=== PATIENT | male | born 1980 | race Caucasian/White ===

== ENCOUNTER 2017-01-18 13:00 | Observation (INO) | payer MEDICAID, OTHER ==
--- NOTE | 2017-01-18 13:45 | EDPHY ---
HPI/HX/ROS/PE/MDM - Data Points Imaging: Discussed imaging studies w/ call worker Radiologist, I viewed and interpreted images myself Narrative: CHIEF COMPLAINT: Right-sided abdominal pain HPI: The patient is a 36 y/o male complaining of right-sided upper abdominal pain. He has had several episodes of similar symptoms for the past several months. However, today's symptoms are more painful than usual. The pain is exacerbated when he eats. He went to an urgent care but the pain improved by the time he arrived. He ate some food after he went to the urgent care and the pain became worse. The pain has also radiated into his right upper back. Denies familial history of gallbladder illness, urinary or bowel complaints, weakness, shortness of breath or other pertinent symptoms. REVIEW OF SYSTEMS: Aside from elements discussed in the HPI, a comprehensive 10-point review of systems was reviewed and is negative. PMH: Appendectomy, depression, anxiety SOCIAL HISTORY: Lives in [place], works as a teacher, nonsmoker PHYSICAL EXAM: General:Patient is alert, in no acute distress. ENT:Eyes are normal to inspection. ENT inspection normal. Neck: Normal inspection. Full range of motion. Respiratory:No respiratory distress. Breath sounds normal bilaterally. Cardiovascular: Regular rate and rhythm. Strong peripheral pulses. Normal cap refill. Abdomen: Mild epigastric tenderness to palpation. There are no peritoneal signs. There are normal bowel sounds. Back: Normal to inspection. No tenderness to palpation. Skin: Normal color. No rash. Warm and dry. Extremities: Normal appearance. Full range of motion. Neuro: Oriented x3. Normal motor function. Normal sensory function. Portions of this note were transcribed by an ED scribe. I personally performed the history, physical exam, and medical decision making; and confirm the accuracy of the information in the transcribed note. (Robert Alcantara) ED Course: 1443: Reassessed patient and discussed laboratory findings. Patient signed out to Dr. Garcia pending US results and re-examination. ( Robert Alcantara) MDM: I assumed care of the patient at 3pm. The patient's ultrasound demonstrates cholelithiasis without obvious cholecystitis. I reviewed the patient's ultrasound images which demonstrates a large stone down in the neck of the gallbladder. Dated the patient he still continues to complain of ongoing pain is noted to have test in the right upper quadrant on exam. The patient received additional IV dose of pain medications. Consultation was made with Dr. Ansari from General surgery at 4:00 p.m.. The patient will require admission to the hospital for surgical treatment of his symptomatic cholelithiasis and possible early cholecystitis. 1 g of IV Invanz has been ordered. (Sachin Garcia) - Data Points Imaging Results: Imaging Impressions Abdomen Ultrasound 01/18/17 14:16 Impression: Cholelithiasis without evidence for cholecystitis. Results called to Prachi Dahl PA-C on 18 January 2017 at 1538 hours. Laboratory Results: Laboratory Results 01/18/17 13:55 01/18/17 13:55 01/18/17 01/18/17 01/18/17 13:55 13:55 13:42 WBC 5.68 10^3/uL 10^3/uL (3.80-9.50) RBC 4.91 10^6/uL 10^6/uL (4.40-6.38) Hgb 15.4 g/dL g/dL (13.7-17.5) Hct 42.9 % % (40.0-51.0) MCV 87.4 fL fL (81.5-99.8) MCH 31.4 pg pg (27.9-34.1) MCHC 35.9 g/dL g/dL (32.4-36.7) RDW 12.4 % % (11.5-15.2) Plt Count 195 10^3/uL 10^3/uL (150-400) MPV 9.8 fL fL (8.7-11.7) Neut % (Auto) 78.7 % H % (39.3-74.2) Lymph % (Auto) 13.4 % L % (15.0-45.0) [place] % (Auto) 6.7 % % (4.5-13.0) Eos % (Auto) 0.5 % L % (0.6-7.6) Baso % (Auto) 0.5 % % (0.3-1.7) Nucleat RBC Rel Count 0.0 % % (0.0-0.2) Absolute Neuts (auto) 4.47 10^3/uL 10^3/uL (1.70-6.50) Absolute Lymphs (auto) 0.76 10^3/uL L 10^3/uL (1.00-3.00) Absolute Monos (auto) 0.38 10^3/uL 10^3/uL (0.30-0.80) Absolute Eos (auto) 0.03 10^3/uL 10^3/uL (0.03-0.40) Absolute Basos (auto) 0.03 10^3/uL 10^3/uL (0.02-0.10) Absolute Nucleated RBC 0.00 10^3/uL 10^3/uL (0-0.01) Immature Gran % 0.2 % % (0.0-1.1) Immature Gran # 0.01 10^3/uL 10^3/uL (0.00-0.10) Sodium 144 mEq/L mEq/L (134-144) Potassium 4.1 mEq/L mEq/L (3.5-5.2) Chloride 104 mEq/L mEq/L (97-110) Carbon Dioxide 25 mEq/l mEq/l (22-31) Anion Gap 15 mEq/L mEq/L (8-16) BUN 17 mg/dL mg/dL (7-23) Creatinine 1.0 mg/dL mg/dL (0.7-1.3) Estimated GFR > 60 Glucose 80 mg/dL mg/dL (70-100) Calcium 9.7 mg/dL mg/dL (8.5-10.4) Total Bilirubin 0.5 mg/dL mg/dL (0.1-1.4) Conjugated Bilirubin 0.3 mg/dL mg/dL (0.0-0.5) Unconjugated Bilirubin 0.2 mg/dL mg/dL (0.0-1.1) AST 13 IU/L L IU/L (17-59) ALT 28 IU/L IU/L (21-72) Alkaline Phosphatase 51 IU/L IU/L (38-126) Troponin I < 0.012 ng/mL ng/mL (0.000-0.034) Total Protein 7.6 g/dL g/dL (6.3-8.2) Albumin 4.7 g/dL g/dL (3.5-5.0) Lipase 94 IU/L IU/L (23-300) General Time Seen by Provider: 01/18/17 13:36 Initial Vital Signs: Initial Vital Signs Temperature (C) 37.1 C 01/18/17 13:08 Heart Rate 86 01/18/17 13:08 Respiratory Rate 18 01/18/17 13:08 Blood Pressure 122/93 H 01/18/17 13:08 O2 Sat (%) 93 01/18/17 13:08 O2 Delivery Mode Room Air Allergies/Adverse Reactions: No Known Allergies Allergy (Verified 01/18/17 13:07) Home Medications: Medication Instructions Recorded Sertraline HCl [Zoloft 50mg (*)] 50 mg PO DAILY 01/18/17 buPROPion [Wellbutrin 75mg (*)] 75 mg PO TID 01/18/17 oxyCODONE/APAP 5/325 [Percocet 1 - 2 tab PO Q4 PRN #20 tab 01/19/17 5/325 (*)] Departure - Departure Disposition: [facility] Inpatient Acute Clinical Impression: Abdominal pain, Acute cholecystitis Condition: Good Report Scribed for: Robert Alcantara Report Scribed by: Charissa Marquez Date of Report: 01/18/17 Time of Report: 13:44
[2017-01-18 14:05] LABS: % IMMATURE GRANULYOCYTES 0.2 % (0.0-1.1); ABSOLUTE IMMATURE GRANULOCYTES 0.01 10^3/uL (0.00-0.10); ADD DIFF? NO; ADD MORPH? NO; ADD SCAN? NO; ATYPICAL LYMPHOCYTE FLAG 0 (0-99); FRAGMENT RBC FLAG 0 (0-99); HEMATOCRIT 42.9 % (40.0-51.0); HEMOGLOBIN 15.4 g/dL (13.7-17.5); LEFT SHIFT FLG 0 (0-99); LIPEMIA HEMOLYSIS FLAG 90 (0-99); MEAN CELL HEMOGLOBIN 31.4 pg (27.9-34.1); MEAN CELL HEMOGLOBIN CONCENTR. 35.9 g/dL (32.4-36.7); MEAN CELL VOLUME 87.4 fL (81.5-99.8); MEAN PLATELET VOLUME 9.8 fL (8.7-11.7); PLATELET CLUMPS FLAG 0 (0-99); PLATELET COUNT 195 10^3/uL (150-400); RED BLOOD CELL COUNT 4.91 10^6/uL (4.40-6.38); RED CELL DISTRIBUTION WIDTH 12.4 % (11.5-15.2)
[2017-01-18 14:17] LABS: ALANINE AMINOTRANSFERASE 28 IU/L (21-72); ALBUMIN 4.7 g/dL (3.5-5.0); ALKALINE PHOSPHATASE 51 IU/L (38-126); ANION GAP 15 mEq/L (8-16); ASPARTATE AMINOTRANSFERASE 13 IU/L (17-59); BILIRUBIN,TOTAL 0.5 mg/dL (0.1-1.4); BILIRUBIN-CONJUGATED 0.3 mg/dL (0.0-0.5); BILIRUBIN-UNCONJUGATED 0.2 mg/dL (0.0-1.1); CALCIUM 9.7 mg/dL (8.5-10.4); CARBON DIOXIDE 25 mEq/l (22-31); CHLORIDE 104 mEq/L (97-110); GLOMERULAR FILTRATION RATE > 60; GLUCOSE 80 mg/dL (70-100); POTASSIUM 4.1 mEq/L (3.5-5.2); SODIUM 144 mEq/L (134-144); TOTAL PROTEIN 7.6 g/dL (6.3-8.2)
[2017-01-18] MEDS ORDERED: ERTAPENEM 1 GM in NS 100 ML IV ONE (16:05)
[2017-01-18] MEDS ORDERED: BUPIVACAINE 0.5% 30 ML SDV ONE (17:32)
[2017-01-18] MEDS ORDERED: HEPARIN 1000 UNIT/1 ML MDV ONE (17:33)
[2017-01-18] MEDS ORDERED: ceFAZolin 1 GM/5 ML SYR ONE (17:33)
--- NOTE | 2017-01-18 18:04 | PDANEPAE ---
ANE History of Present Illness Patient presents for weekend non-urgent lap veronica ANE Past Medical History - Pulmonary History Hx Oxygen in Use at Home: No Hx Sleep Apnea: No Sleep Apnea Screening Result - Last Documented: Negative - Endocrine History Hx Diabetes: No - Chronic Pain History Chronic Pain: No ANE Review of Systems Review of Systems: ANE Patient History - Allergies Allergies/Adverse Reactions: No Known Allergies Allergy (Verified 01/18/17 13:07) - Home Medications Home medications: home medication list seen and reviewed Home Medications: Sertraline HCl [Zoloft 50mg (*)] 50 mg PO DAILY 01/18/17 [Last Taken Unknown] buPROPion [Wellbutrin 75mg (*)] 75 mg PO TID 01/18/17 [Last Taken Unknown] - NPO status NPO Since - Liquids (Date): 01/18/17 NPO Since - Liquids (Time): 11:00 NPO Since - Solids (Date): 01/18/17 NPO Since - Solids (Time): 11:00 (Juavos Rancheros at 1100 on 01/18/17) - Anes Hx Anes Hx: no prior problems - Smoking Hx Smoking Status: Never smoked ANE Labs/Vital Signs - Labs Result Diagrams: 01/18/17 13:55 01/18/17 13:55 - Vital Signs Blood Pressure: 123/72 Heart Rate: 84 Respiratory Rate: 14 O2 Sat (%): 94 Height: 190.5 cm Weight: 91.626 kg ANE Physical Exam - Airway Neck exam: FROM Mallampati Score: Class 1 Mouth exam: normal dental/mouth exam - Pulmonary Pulmonary: no respiratory distress - Cardiovascular Cardiovascular: regular rate and rhythym - ASA Status ASA Status: II ANE Anesthesia Plan Anesthesia Plan: general endotracheal anesthesia (RBA discussed. Patient desires to wait for 8-hours per my recommendation pending Dr. Ansari decision on urgency. )
--- NOTE | 2017-01-18 18:39 | PDGENHP ---
History & Physical Chief Complaint: abd pain History of Present Illness: male with ruq pain after eating/ us shows impacted stone/ bile ducts ok/ LFTs OK/ SOME EMESIS/ NO FEVER/. RISKS AND OPTIONS FULLY DISCUSSED Pertinent Past, Social, Family History: PMH: APPE/ DEPRESSION, ANXIETY. MEDS WELBUTRIN, SERTALINE. NKA. ROS: - 10 PT REVIEW. FAM: NONCONTRIBUTORY Relevant Physical Exam: GEN: HEALTHY 36 MALE IN NO ACUTE DISTRESS, AFEBRILE. HEENT NONICTERIC, NO ORAL LESIONS, PEERLA, NO NODES. CHEST CLEAR. COR RR. ABD SOFT, TENDER RUQ. EXTREM OK. SKIN NO LESIONS. NEURO PHYSIOLOGIC. PSCH: ALERT, ORIENTED, COMPETENT Cardiorespiratory Assessment: IMPR: ACUTE ROXANE. PLAN LAP ROXANE/ RISKS AND OPTIONS FULLY DISCUSSED
[2017-01-18] MEDS ORDERED: MIDAZOLAM 2 MG/2 ML VIAL IVP ONE (20:08)
[2017-01-18] MEDS ORDERED: PROPOFOL 200 MG/20 ML VIAL ONE ×2 (20:16)
[2017-01-18] MEDS ORDERED: fentaNYL 100 MCG/2 ML INJ ONE ×2 (20:16→21:37)
[2017-01-18] MEDS ORDERED: LIDOCAINE 2% 100 MG/5 ML SYR ONE (20:18)
[2017-01-18] MEDS ORDERED: DEXAMETHASONE 4 MG/ML VIAL ONE (20:57)
[2017-01-18] MEDS ORDERED: ONDANSETRON 4 MG/2 ML VIAL ONE (20:57)
[2017-01-18] MEDS ORDERED: ACETAMINOPHEN 500 MG TAB PO PRN (20:58)
[2017-01-18] MEDS ORDERED: PROMETHAZINE HCL 25 MG/ML INJ IVP PRN (20:58)
[2017-01-18] MEDS ORDERED: NALOXONE HCL 0.4 MG/ML INJ IVP PRN (20:58)
[2017-01-18] MEDS ORDERED: OXYCODONE/APAP 5/325 TAB PO PRN ×2 (20:58→21:26)
[2017-01-18] MEDS ORDERED: ONDANSETRON 4 MG/2 ML VIAL IVP PRN ×2 (20:58→21:26)
--- NOTE | 2017-01-18 21:22 | POSTOPPROG ---
Post Op Note Date of Operation: 01/18/17 Surgeon: Pancho Ansari Anesthesiologist: KIMBERLI Anesthesia: GET(General Endotracheal) Pre-op Diagnosis: ACUTE CHOLECYSTITIS Post-op Diagnosis: SAME Indication: PAIN, IMPACTED STONE Procedure: LAP ROXANE Findings: SINGLE LARGE STONE IMPACTED IN NECK Inf/Abcess present in the surg proc area at time of surgery?: Yes Depth: Organ Space EBL: Minimal Complications: 0 Specimen(s): GALLBLADDER
[2017-01-18] MEDS ORDERED: HYDROmorphONE/DILAUDID 1 MG/ML INJ IVP PRN (21:26)
[2017-01-18] MEDS ORDERED: KETOROLAC 30 MG/1 ML SDV IVP ONE (21:26)
[2017-01-18] MEDS ORDERED: D5W 1/2 NS W/ 20 KCl/L 1,000 ML IV SCH (21:30)
--- NOTE | 2017-01-18 21:34 | POSTANESTH ---
Post Anesthetic Evaluation Cardiovascular Status: Normal, Stable, Similar to Pre-Op Cond Respiratory Status: Normal, Stable, Similar to Pre-op Cond. Level of Consciousness/Mental Status: Can Participate in Eval, Alert and Oriented Pain Control: Adequate, Prn Tx Ordered Nausea/Vomiting Control: Adequate, Prn Tx Ordered Complications Possibly Related to Anesthesia: None Noted
[2017-01-18] MEDS ORDERED: HYDROmorphONE/DILAUDID 1 MG/ML INJ ONE (21:38)
[2017-01-18] MEDS: fentaNYL 100 MCG/2 ML INJ IVP PRN ×3 (21:40→22:24)
[2017-01-18] MEDS: HYDROmorphONE/DILAUDID 1 MG/ML INJ IVP PRN ×3 (21:41→22:24)
[2017-01-18] MEDS: buPROPion 75 MG TAB PO SCH (22:51)
[2017-01-19] MEDS: KETOROLAC 15 MG/1 ML SDV IVP SCH ×2 (00:54→05:56)
[2017-01-19 01:48] VITALS: TEMP 97.7
[2017-01-19] MEDS: buPROPion 75 MG TAB PO SCH (08:15)
[2017-01-19 08:17] VITALS: BP 107/61; PULSE 78; RESP 12; O2SAT 95
[2017-01-19] MEDS ORDERED: ERTAPENEM 1 GM in NS 100 ML IV SCH (09:00)
[2017-01-19] MEDS ORDERED: SERTRALINE HCL 50 MG TAB PO SCH (09:00)
[2017-01-19] MEDS ORDERED: ACETAMINOPHEN 325 MG TAB PO PRN (10:16)
--- NOTE | 2017-01-19 10:36 | SOAPPROG ---
SOAP Progress Note Assessment/Plan: Assessment: 36yo M POD #1 s/p laparoscopic cholecystectomy for cholelithiasis Regular diet Cont routine post op care May shower Dispo: home today S: No complaints. Pain controlled. Tolerating clears without N/V. Ready to try regular diet before going home today. O: Afebrile Lying in bed, NAD MMM Abd soft, nontender, nondistended. + BS. Incisions c/d/i with steri strips Objective: Vital Signs Temp Pulse Resp BP Pulse Ox 36.5 C 78 12 107/61 95 01/19/17 08:00 01/19/17 08:00 01/19/17 08:00 01/19/17 08:00 01/19/17 08:00 01/18/17 01/19/17 01/20/17 05:59 05:59 05:59 Intake Total 1475 240 Output Total 625 Balance 850 240 ICD10 Worksheet Patient Problems: Problems Problem Status Onset Abdominal pain Acute Acute cholecystitis Acute
--- NOTE | 2017-01-20 12:10 | ASDISCHSUM ---
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
== END 2017-01-19 11:02 | disposition home or self-care (01) ==
LOC: F3E 17:23
PROVIDERS: ADMIT Surgery; ATTEND Surgery
PROC: 0FT44ZZ Resection of Gallbladder, Percutaneous Endoscopic Approach (ICD-10-PCS; principal; 2017-01-18 19:00)
DX: K80.00 Calculus of gallbladder with acute cholecystitis without obstruction (principal); F41.8 Other specified anxiety disorders
CPT/HCPCS: 47562; 76705; G0378; 96365; 96366; J1100; J1170; J1335; J1885; J2001; J2250; J2405; J2704; J3010

== ENCOUNTER → 2017-09-07 | Outpatient (CLI) | payer MEDICAID | LOC: FCPNEURO 23:30 | PROVIDERS: ATTEND Student in an Organized Health Care Education/Training Program | DX: G47.33 Obstructive sleep apnea (adult) (pediatric) (principal) ==